=== PATIENT | female | born 1975 | race African-American/Black ===

== ENCOUNTER 2017-09-26 12:00 | Inpatient (IN) | payer OTHER ==
[2017-09-25 10:30] VITALS: BMI 21.1
[2017-09-26] MEDS ORDERED: ceFAZolin SODIUM 1 GM VIAL ONE (14:25)
--- NOTE | 2017-09-26 14:30 | HP ---
History & Physical Update - History History: No Change - Physical Physical: No Change - Assessment Assessment: No Change - Plan Plan: No Change
[2017-09-26] MEDS ORDERED: BUPIVACAINE HCL/PF 0.5% (5MG/ML) 10 ML VIAL ONE ×2 (16:32→16:36)
[2017-09-26] MEDS ORDERED: DEXAMETHASONE SOD PHOSPHATE/PF 10 MG/ML SDV ONE (16:34)
[2017-09-26] MEDS ORDERED: MIDAZOLAM HCL 2 MG/2 ML SINGLE DOSE VIAL ONE ×2 (16:35)
[2017-09-26] MEDS ORDERED: ROCURONIUM BROMIDE 50 MG/5 ML VIAL ONE (16:40)
[2017-09-26] MEDS ORDERED: PROPOFOL 20 ML ONE (16:40)
[2017-09-26] MEDS ORDERED: LIDOCAINE HCL/PF 2% SDV 5ML VIAL ONE (16:41)
[2017-09-26] MEDS ORDERED: DEXAMETHASONE SOD PHOSPHATE 4 MG/1 ML VIAL ONE (16:41)
[2017-09-26] MEDS ORDERED: VASOPRESSIN 20 UNITS/ML VIAL IV ONE (16:58)
[2017-09-26] MEDS ORDERED: ceFAZolin SODIUM 1 GM VIAL IVPB ONE (17:30)
[2017-09-26] MEDS ORDERED: BUPIVACAINE HCL/PF 0.5% (5MG/ML) 10 ML VIAL IJ ONE ×2 (17:59)
[2017-09-26] MEDS ORDERED: ACETAMINOPHEN INJECTION 100 ML IVPB ONE (19:17)
[2017-09-26] MEDS ORDERED: morphine SULFATE 4 MG/ML VIAL IVPUSH PRN (19:23)
[2017-09-26] MEDS ORDERED: diphenhydrAMINE HCL 25 MG CAPSULE (FP) PO PRN (19:23)
[2017-09-26] MEDS ORDERED: METOCLOPRAMIDE HCL INJECTION 10 MG/2 ML VIAL IVPUSH PRN (19:23)
[2017-09-26] MEDS ORDERED: ONDANSETRON 4 MG/2 ML VIAL IVPB PRN (19:23)
[2017-09-26] MEDS ORDERED: oxyCODONE HCL 5 MG TABLET PO PRN (19:27)
[2017-09-26] MEDS ORDERED: ONDANSETRON 4 MG/2 ML VIAL IVPUSH PRN (19:32)
[2017-09-26] MEDS ORDERED: ACETAMINOPHEN 1000 MG/100 ML VIAL (NON FORMULARY) IVPB ONE (19:45)
[2017-09-26] MEDS ORDERED: LACTATED RINGERS SOLUTION 1,000 ML IV SCH (19:45)
[2017-09-26] MEDS ORDERED: DEXTROSE 5%-LACTATED RINGERS 1,000 ML IV SCH (20:15)
[2017-09-26] MEDS: KETOROLAC TROMETHAMINE 30 MG/1 ML VIAL IVPUSH SCH ×2 (21:59→22:06)
[2017-09-26] MEDS: ACETAMINOPHEN 500 MG TABLET (FP) PO SCH (22:01)
[2017-09-27] MEDS: ACETAMINOPHEN 500 MG TABLET (FP) PO SCH ×4 (03:23→18:58)
[2017-09-27] MEDS: KETOROLAC TROMETHAMINE 30 MG/1 ML VIAL IVPUSH SCH ×3 (03:26→15:52)
--- NOTE | 2017-09-27 07:26 | OP ---
DATE OF OPERATION: September 26, 2017 PREOPERATIVE DIAGNOSES: 1. Fibroid uterus. 2. Right ovarian cyst. POSTOPERATIVE DIAGNOSES: 1. Fibroid uterus. 2. Right ovarian cyst. PROCEDURE: Abdominal myomectomy, right ovarian cyst drainage. SURGEON: Aleyda Roca MD COSURGEON: Kellee Yin MD ANESTHESIA: General endotracheal and local and bilateral TAP block. ESTIMATED BLOOD LOSS: 25 mL COMPLICATIONS: None. INDICATIONS: This is a 42-year-old 1, para 1, with history of a large 16-week myomatous uterus and a large, irregular myoma arising from the lower uterine segment anteriorly. Patient is strongly desiring future fertility. She also was found to have a right ovarian cyst. An MRI of the pelvis on May 15, 2017, showed a 12.6-cm heterogenous anterior lower uterine segment/cervical mass with submucosal component which may be myoma, cannot exclude sarcoma. There was also a hemorrhagic complex cyst on the right measuring 2.8 cm. The patient reports normal menses every 25 days for 4 days. No dysmenorrhea, not heavy. Patient denied any abnormal bleeding. Patient was counseled regarding surgical management. Risks, benefits, indications, and alternatives were discussed with the patient. All questions were answered. Informed consent was signed. FINDINGS: Exam under anesthesia: Uterus approximately 16-week size and mobile. INTRAABDOMINAL FINDINGS: There was a large, approximately 15-cm mass arising from the anterior lower uterine segment. There was also an additional 2-cm myoma from the anterior fundus. The left tube and ovary were normal. The right ovary contained an approximately 2-cm cyst which was adherent to the posterior uterus and upon manipulation drained dark, old blood consistent with endometrioma. There were some endometriosis implants on the right ovary as well. DESCRIPTION OF PROCEDURE: The patient was taken to the operating room, placed in the dorsal supine position. General endotracheal anesthesia was obtained without difficulty. A Rendon catheter was placed. She was prepped and draped in the normal sterile fashion. A small Pfannenstiel incision was made overlying her previous scar. This was carried down to the fascia. The fascia was opened in the midline. The rectus muscles were off the fascia. Peritoneum was entered sharply. This incision was extended inferiorly and superiorly, and the myoma was able to be gently brought through to the incision. A 20% solution was injected at the base of the myoma, and a circumferential incision was made around the base of the fibroid, and the myoma was gently dissected out from the anterior lower uterine segment and the cervix. It was able to be brought out in its entirety. It in the endometrial cavity, and the defect was closed. There was a large defect which was closed, taking care not to close the endometrial cavity but closing the muscle defect. This was closed in a running locked fashion using 0 Vicryl, and Surgicel was placed in the defect. Excellent hemostasis was seen. Additional incision was made over the anterior fundus myoma, and this was excised and the muscle wall was closed in a running locked fashion using 0 Vicryl. Excellent hemostasis was seen. We at this point examined the right ovary, and upon trying to lift it out of the pelvis, the cyst was ruptured and there was dark old blood arising from the cyst. Endometriosis implants were identified on the ovarian wall. These were cauterized with the electrocautery. Excellent hemostasis was seen. The uterus was replaced into the pelvis, and overlying the incision Interceed was placed. The pelvis had been irrigated and was hemostatic. The peritoneum and muscles were closed in a running continuous fashion using 0 Vicryl. Fascia was closed in a running continuous fashion using 0 Vicryl. The subcutaneous fat was irrigated with saline and undermined. Skin was closed with 4-0 Monocryl, and Dermabond was applied. The patient was extubated and transferred in stable condition to the PACU. Sisi [id number]
[2017-09-27 08:29] LABS: HEMATOCRIT 26.8 % (32.4-45.2); HEMOGLOBIN 8.5 GM/dL (10.7-15.3); MCH 22.3 pg (25.7-33.7); MCHC 31.9 g/dl (32.0-36.0); MEAN CELL VOLUME 69.8 fl (80-96); MEAN PLT VOLUME 7.4 fl (7.5-11.1); PLATELET COUNT 261 K/MM3 (134-434); RBC 3.83 M/mm3 (3.60-5.2); RDW 17.9 % (11.6-15.6); WHITE BLOOD COUNT 14.6 K/mm3 (4.0-10.0)
[2017-09-27 09:27] LABS: ANION GAP 6 (8-16); BLOOD UREA NITROGEN 6 mg/dL (7-18); CALCIUM 8.1 mg/dL (8.5-10.1); CHLORIDE 105 mmol/L (98-107); CO2 26 mmol/L (21-32); CREATININE 0.6 mg/dL (0.55-1.02); GLUCOSE,RANDOM 149 mg/dL (74-106); SODIUM 137 mmol/L (136-145)
[2017-09-27] MEDS ORDERED: ENOXAPARIN NA (PORCINE) 40 MG/0.4 ML DISP.SYRIN SQ SCH (10:00)
--- NOTE | 2017-09-27 12:14 | PN ---
Progress Note (short form) - Note Progress Note: pt states that she is having some vaginal bleeding today, scant. OOb ambualting , passing flatus and tolerating a diet. Voiding without difficulty. Vital Signs Period Temp Pulse Resp BP Sys/South Pulse Ox Last 24 Hr 97.7 F-99.1 F 74-103 10-20 100-126/48-89 100-100 GEN: Appears comfortable ABD: soft, non-distended, inc tendneress. Inc c/d/i with dermabond. No masses/ ecchymosis CBC, BMP 09/27/17 07:00 09/27/17 07:00 Problem List - Problems (1) Fibroid Assessment/Plan: s/p abdominal myomectomy, POD #1 tolerating diet, may discontinue IV fluids oral pain medications, as needed continue oob and ambulate D/w Dr. Carl, plan for Dr. Yin to discharge the patient later today Code(s): D25.9 - LEIOMYOMA OF UTERUS, UNSPECIFIED
--- NOTE | 2017-09-27 15:58 | PN ---
Progress Note (SOAP) - Subjective History of Present Illness: Patient without acute complaints. Tolerating regular diet without nausea or vomiting Ambulating, voiding, passing flatus. Mild VB. Denies fevers or chills. Denies chest pain, shortness of breath Pain well controlled with oral medication. - Current Medications Current Medications: Active Medications Acetaminophen (Tylenol -) 1,000 mg PO Q6HPO [facility] Last Admin: 09/27/17 13:14 Dose: 1,000 mg Diphenhydramine HCl (Benadryl -) 25 mg PO Q6H PRN PRN Reason: FOR ITCHING Enoxaparin Sodium (Lovenox -) 40 mg SQ DAILY [facility] Last Admin: 09/27/17 09:22 Dose: 40 mg Ketorolac Tromethamine (Toradol Injection -) 30 mg IVPUSH Q6H-IV [facility] Stop: 10/01/17 19:44 Last Admin: 09/27/17 15:52 Dose: 30 mg Metoclopramide HCl (Reglan Injection -) 10 mg IVPUSH Q6H PRN PRN Reason: NAUSEA AND/OR VOMITING Morphine Sulfate (Morphine Sulfate) 2 mg IVPUSH Q3H PRN PRN Reason: PAIN LEVEL 7 - 10 Ondansetron HCl (Zofran Injection) 8 mg IVPB Q8H PRN PRN Reason: NAUSEA Ondansetron HCl (Zofran Injection) 4 mg IVPUSH Q6H PRN PRN Reason: NAUSEA AND/OR VOMITING Last Admin: 09/26/17 22:02 Dose: 4 mg Oxycodone HCl (Roxicodone -) 5 mg PO Q4H PRN PRN Reason: PAIN LEVEL 4 - 6 - Objective Vital Signs: Vital Signs Temperature 98.2 F 09/27/17 15:04 Pulse Rate 85 09/27/17 15:04 Respiratory Rate 16 09/27/17 15:04 Blood Pressure 117/55 09/27/17 15:04 O2 Sat by Pulse Oximetry (%) 100 09/27/17 09:00 Constitutional: Yes: Well Nourished, No Distress, Calm Cardiovascular: Yes: Regular Rate and Rhythm Respiratory: Yes: Regular, CTA Bilaterally Gastrointestinal: Yes: Normal Bowel Sounds, Soft, Other (incision clean / intact ) Genitourinary: Yes: Vaginal Bleeding (mild) Edema: No Psychiatric: Yes: Alert, Oriented Labs Lab Results: CBC, BMP 09/27/17 07:00 09/27/17 07:00 Assessment/Plan 42 yo POD # 1 s/p mini laparotomy, myomectomy, mild anemia 1. Patient stable for discharge home today. 2. Patient encouraged to contact MD for: - Severe pain not controlled by oral pain medication - Fevers or chills - Nausea or vomiting, intolerance of oral intake - Incision redness, tenderness or discharge 3. Patient to follow up in office in 2 weeks for incision check with Dr. Roca
--- NOTE | 2017-09-27 16:02 | DS ---
Physical Exam-[employer] Vital Signs: Vital Signs Temperature 98.2 F 09/27/17 15:04 Pulse Rate 85 09/27/17 15:04 Respiratory Rate 16 09/27/17 15:04 Blood Pressure 117/55 09/27/17 15:04 O2 Sat by Pulse Oximetry (%) 100 09/27/17 09:00 Labs: CBC, BMP 09/27/17 07:00 09/27/17 07:00 Discharge Summary Reason For Visit: UTERINE MYOMA Myoma Procedures: Principal: myomectomy, right ovarian cyst drainage via mini- laparotomy Hospital Course: Patient fulfilled all criteria for discharge home on POD # 1 Condition: Good - Instructions Diet, Activity, Other Instructions: Physical activity Resume your normal everyday activity as tolerated no heavy lifting or exercise until seen by your surgeon. You may walk unlimited thierno of and climb stairs. You may resume driving the car when you feel safe and comfortable behind the wheel. No sexual activity as instructed. Diet There are no dietary restrictions. Eat healthy, high-fiber foods. Drink 6 to 8 glasses of liquid each day. This will assist in keeping your bowels are regular. Pain management You may take Tylenol or acetaminophen or Ibuprofen (for example, Motrin, Advil etc.) from my pain prescription medication is ordered should be taken as prescribed for moderate to severe pain. Call MD for any of the following: Severe pain not relieved by medication Fever of 101 or higher Excessive bleeding or drainage on dressing Inability to urinate Referrals: Aleyda Roca MD [Staff Physician] - Disposition: HOME - Home Medications Comprehensive Discharge Medication List: Ambulatory Orders Acetaminophen [Tylenol] 650 mg PO PRN 09/25/17 oxyCODONE HCL [Roxicodone -] 5 mg PO Q4H PRN #10 tablet MDD 4 09/27/17
--- NOTE | 2017-09-27 17:28 | PN ---
Progress Note (short form) - Note Progress Note: Anesthesiology Post-op POD#1 s/p Myomectomy under GA and TAP blocks. Pt. feels well. She denies pain, denies n/v. VSS. 42 y.o. s/p myomectomy under GA and TAP blocks with stable post-operative course. Pt. is to be d/c to home as per primary team.
[2017-09-27 17:40] VITALS: BP 109/67; PULSE 75; TEMP 98.1
--- NOTE | 2017-09-28 15:52 | PATH ---
Surgical Pathology Report Patient Name: DAT LOPEZ Med. Rec. #: [id number] /Age/Gender: 1975 (Age: 42) / F Account: [id number] Location: [facility] MED/SURG Taken: 09/26/2017 Received: 09/27/2017 Reported: 09/28/2017 Physicians: Aleyda Roca MD Specimen(s) Received A: UTERINE MYOMA B: ANTERIOR FIBROID C: ANTERIOR FIBROID D: FIBROID Clinical History Uterine myoma Intraoperative Consult Diagnosis Uterine myoma (FS): Leiomyoma with degenerative changes on route sales representative section. Dr. Díaz September 26, 2017 Final Diagnosis A. UTERUS, MYOMECTOMY: LEIOMYOMA, 562 GRAMS, WITH DEGENERATIVE CHANGES AND DYSTROPHIC CALCIFICATION. B. UTERUS, ANTERIOR FIBROID, MYOMECTOMY: LEIOMYOMA. C. UTERUS, ANTERIOR FIBROID, MYOMECTOMY: LEIOMYOMA WITH DEGENERATIVE CHANGES. D. UTERUS, MYOMECTOMY: LEIOMYOMA. Electronically Signed Everett Guillaume M.D. Gross Description A. Received fresh for frozen section labeled "uterine myoma" is a 562 gram, 14 x 10 x 4 cm lobulated ray and patel mass with a whorled sandoval cut surface. No areas of hemorrhage or necrosis are identified. A route sales representative portion is frozen posterior remainder is submitted in cassette FSA 1. Additional route sales representative sections are submitted in cassettes A2 through A8 for permanent section. [facility] B. Received in formalin labelled "anterior fibroid" is a 0.8 cm greatest dimension portion of sandoval tissue with a uniform patel interior. Sectioned and totally submitted in one cassette. C. Received in formalin labelled "anterior fibroid" is an 8 gram, 2.6 x 1.6 x 1.1 cm portion of patel tissue with a lobulated patel interior. No focal lesions are identified. Flame Burner sections are submitted in 2 cassettes. D. Received in formalin labelled "fibroid" is a 6 gram, 2.5 x 2.2 x 2.0 cm portion of patel tissue with a whorled patel interior. No areas of hemorrhage or necrosis are identified. Flame Burner sections are submitted in 2 cassettes. [facility]/09/27/2017 [facility]/09/27/2017
== END 2017-09-27 19:41 | disposition home or self-care (01) | DRG 519 ==
LOC: JSAMEDAYSX 12:46 → EDSTATUS 13:30 → J8W 21:51
PROVIDERS: ADMIT Obstetrics & Gynecology Gynecologic Oncology; ATTEND Obstetrics & Gynecology Gynecologic Oncology
PROC: 0U900ZZ Drainage of Right Ovary, Open Approach (ICD-10-PCS; 2017-09-26)
PROC: 0UB90ZZ Excision of Uterus, Open Approach (ICD-10-PCS; principal; 2017-09-26 14:45)
DX: D25.9 Leiomyoma of uterus, unspecified (principal); N83.201 Unspecified ovarian cyst, right side
CPT/HCPCS: 36415; 80048; 84702; 85027; 86850; 86900; 86901; 88305-TC; 88331-TC; 94760; J0131